=== PATIENT | male | born 1960 | race Caucasian/White ===

== ENCOUNTER → 2023-03-30 | Outpatient (CLI) | payer BC | END | disposition home or self-care (01) | LOC: LABWHC1 07:15 | PROVIDERS: ATTEND Internal Medicine Endocrinology, Diabetes & Metabolism | DX: E24.0 Pituitary-dependent Cushing's disease (principal) | CPT/HCPCS: 36415; 82024; 82533 ==

== ENCOUNTER → 2023-05-28 | Outpatient (CLI) | payer BC ==
[2023-05-28 21:20] LABS: HCT 44.1 % (39.6-50.0); HGB 14.1 d/dL (13.0-17.0); MCH 27.8 pg (27.0-32.0); Mean Platelet Volume 11.6 FL (9.5-12.2); NRBC Per 100 WBC 0 X 10*3/uL (0.00-0.01); Platelet Count 213 X 10*3/uL (140-440); RBC 5.07 X 10*6/uL (4.40-5.60); RDW 14.2 % (11.5-14.5); WBC 5.97 X 10*3/uL (4.50-10.00)
== END | disposition home or self-care (01) ==
LOC: LABWHC1 06:59
PROVIDERS: ATTEND Internal Medicine Endocrinology, Diabetes & Metabolism
DX: E29.1 Testicular hypofunction (principal)
CPT/HCPCS: 36415; 84403; 85027

== ENCOUNTER → 2023-09-21 | Outpatient (CLI) | payer BC ==
[2023-09-21 16:11] LABS: HCT 46.9 % (39.6-50.0); HGB 15.2 g/dL (13.0-17.0); MCH 27.1 pg (27.0-32.0); MCHC 32.4 g/dL (32.0-37.0); MCV 83.6 FL (80.0-97.0); Mean Platelet Volume 11.1 FL (9.5-12.2); NRBC Per 100 WBC 0 X 10*3/uL (0.00-0.01); Platelet Count 232 X 10*3/uL (140-440); RBC 5.61 X 10*6/uL (4.40-5.60); RDW 13.8 % (11.5-14.5); WBC 5.01 X 10*3/uL (4.50-10.00)
[2023-09-21 16:50] LABS: Prostate Specific Antigen 1.24 ng/mL (0.000-4.500)
== END | disposition home or self-care (01) ==
LOC: LABWHC1 09:43
PROVIDERS: ATTEND Internal Medicine Endocrinology, Diabetes & Metabolism
DX: E29.1 Testicular hypofunction (principal)
CPT/HCPCS: 36415; 84153; 84403; 85027

== ENCOUNTER → 2024-01-22 | Outpatient (CLI) | payer BC ==
[2024-01-22 11:08] LABS: HCT 43.8 % (39.6-50.0); HGB 13.9 g/dL (13.0-17.0); MCH 27.1 pg (27.0-32.0); MCHC 31.7 g/dL (32.0-37.0); MCV 85.5 FL (80.0-97.0); Mean Platelet Volume 11.5 FL (9.5-12.2); NRBC Per 100 WBC 0 X 10*3/uL (0.00-0.01); Platelet Count 191 X 10*3/uL (140-440); RBC 5.12 X 10*6/uL (4.40-5.60); RDW 13.7 % (11.5-14.5); WBC 4.86 X 10*3/uL (4.50-10.00)
[2024-01-22 11:27] LABS: Prostate Specific Antigen 1.43 ng/mL (0.000-4.500)
== END | disposition home or self-care (01) ==
LOC: LABWHC1 06:52
PROVIDERS: ATTEND Internal Medicine Endocrinology, Diabetes & Metabolism
DX: E29.1 Testicular hypofunction (principal)
CPT/HCPCS: 36415; 84153; 84403; 85027

== ENCOUNTER 2024-11-11 20:54 | Emergency (ER) | payer BC ==
[2024-11-11 21:06] VITALS: TEMP 97.8
--- NOTE | 2024-11-11 22:07 | ED ---
General Adult HPI - General Chief complaint: Extremity Injury, Upper Stated complaint: Left Arm Bruising Time Seen by Provider: 11/11/24 21:09 Source: patient, RN notes reviewed Mode of arrival: ambulatory - History of Present Illness Initial comments: This is a 64-year-old male with no significant medical history presenting to emergency department with pain to his left upper arm. Patient states that on 11/05/2023 he was outside cutting a deer when he pulled his left bicep. He noticed ecchymosis surrounding the area and pain. Patient was evaluated by orthopedic tech, Dr. Mcclellan on 11/16/24 for an x-ray was completed and physician suggested that patient's pain is likely secondary to muscle strain and continue supportive treatment at home with referral to physical therapy in 4 weeks. Patient believes that he may have further aggravated the muscle today while he was at work driving as there is increasing bruising to the area. Patient states that he feels a tightness in his left bicep. He denies chest pain, shortness of breath, heart palpitations, dizziness lightheadedness. Denies recent surgeries, history of DVT/PE, hemoptysis. - Related Data Allergies Allergy/AdvReac Type Severity Reaction Status Date / Time No Known Allergies Allergy Verified 11/11/24 21:06 Review of Systems ROS Statement: Those systems with pertinent positive or pertinent negative responses have been documented in the HPI. ROS Other: All systems not noted in ROS Statement are negative. Past Medical History Past Medical History: No Reported History History of Any Multi-Drug Resistant Organisms: None Reported Past Surgical History: No Surgical Hx Reported Past Psychological History: No Psychological Hx Reported Smoking Status: Never smoker Past Alcohol Use History: None Reported Past Drug Use History: None Reported General Exam General appearance: alert, in no apparent distress Respiratory exam: Present: normal lung sounds bilaterally. Absent: respiratory distress, wheezes, rales, rhonchi, stridor Cardiovascular Exam: Present: regular rate, normal rhythm, normal heart sounds. Absent: systolic murmur, diastolic murmur, rubs, gallop, clicks GI/Abdominal exam: Present: soft, normal bowel sounds. Absent: distended, tenderness, guarding, rebound, rigid Left Upper Arm exam: Present: full ROM, tenderness, ecchymosis. Absent: deformity, crepidus, dislocation Vascular: Present: normal capillary refill. Absent: vascular compromise Back exam: Present: normal inspection Neurological exam: Present: alert, oriented X3, CN II-XII intact Course Vital Signs 11/11/24 11/11/24 20:57 23:14 Temperature 97.8 F Pulse Rate 71 66 Respiratory 18 16 Rate Blood Pressure 198/95 176/89 O2 Sat by Pulse 96 96 Oximetry Medical Decision Making - Medical Decision Making Was pt. sent in by a medical professional or institution (, PA, RETORT FURNACE OPERATOR, urgent care, hospital, or longterm...) When possible be specific @ -No Did you speak to anyone other than the patient for history (EMS, parent, family, police, friend...)? What history was obtained from this source @ -No Did you review nursing and triage notes (agree or disagree)? Why? @ -I reviewed and agree with nursing and triage notes Were old charts reviewed (outside hosp., previous admission, EMS record, old EKG, old radiological studies, urgent care reports/EKG's, longterm records)? Report findings @ -No old charts were reviewed Differential Diagnosis (chest pain, altered mental status, abdominal pain women, abdominal pain men, vaginal bleeding, weakness, fever, dyspnea, syncope, headache, dizziness, GI bleed, back pain, seizure, CVA, palpatations, mental health, musculoskeletal)? @ -Differential Musculoskeletal Muscular strain, contusion, ligament sprain, fracture, arthritis, septic arthritis, bursitis, cellulitis, muscle spasm, nerve compression, DVT, arterial occlusion, herpes zoster, electrolyte abnormality, tumor.... This is not meant to be in all inclusive list EKG interpreted by me (3pts min.). @ -none X-rays interpreted by me (1pt min.). @ -None CT interpreted by me (1pt min.). @ -None done U/S interpreted by me (1pt. min.). @ -Duplex ultrasound is essentially nondiagnostic. What testing was considered but not performed or refused? (CT, X-rays, U/S, labs)? Why? @ -None What meds were considered but not given or refused? Why? @ -None Did you discuss the management of the patient with other professionals (professionals i.e. , PA, RETORT FURNACE OPERATOR, lab, RT, psych nurse, social sciences research scientist, handhole machine operator, teacher, space officer, pillowcase turner)? Give summary @ -No Was smoking cessation discussed for >3mins.? @ -No Was critical care preformed (if so, how long)? @ -No Were there social determinants of health that impacted care today? How? (Homelessness, low income, unemployed, alcoholism, drug addiction, transportation, low edu. Level, literacy, decrease access to med. care, assisted, rehab)? @ -No Was there de-escalation of care discussed even if they declined (Discuss DNR or withdrawal of care, Hospice)? DNR status @ -No What co-morbidities impacted this encounter? (DM, HTN, Smoking, COPD, CAD, Cancer, CVA, ARF, Chemo, Hep., AIDS, mental health diagnosis, sleep apnea, morbid obesity)? @ -None Was patient admitted / discharged? Hospital course, mention meds given and route, prescriptions, significant lab abnormalities, going to OR and other pertinent info. @ -64-year-old male presenting to the emergency department with left upper extremity ecchymosis and pain. Patient noted to have anterior bicep ecchymosis traveling distally past the elbow. Patient has pain to palpation of the ecchymosis in addition to mild pain with flexion of the bicep. Patient is neurovascularly intact to the upper extremity. As patient underwent x-ray imaging this week x-rays deferred however ultrasound was ordered to rule out DVT. He is offered pain medication however he declined. Patient is requesting discharge prior to radiology interpretation of ultrasound. Patient has verbalized risks of abnormal study results however patient has continued to request discharge. Patient is informed that results will be given to him when they are resulted and instructed to follow-up with orthopedic tech for further evaluation with likely MRI to discern soft tissue injury. Case discussed with Dr. Jones Undiagnosed new problem with uncertain prognosis? @ -No Drug Therapy requiring intensive monitoring for toxicity (Heparin, Nitro, Insulin, Cardizem)? @ -No Were any procedures done? @ -No Diagnosis/symptom? @ -ecchymosis of left arm, muscle sprain vs. muscle tear Acute, or Chronic, or Acute on Chronic? @ -acute Uncomplicated (without systemic symptoms) or Complicated (systemic symptoms)? @ -uncomplicated Side effects of treatment? @ -No Exacerbation, Progression, or Severe Exacerbation? @ -No Poses a threat to life or bodily function? How? (Chest pain, [place], MA, pneumonia, PE, COPD, DKA, ARF, appy, cholecystitis, CVA, Diverticulitis, Homicidal, Suicidal, threat to staff... and all critical care pts) @ -No Disposition Clinical Impression: Ecchymosis, Muscle strain Disposition: HOME SELF-CARE Condition: Good Instructions (If sedation given, give patient instructions): Ecchymosis (ED) Additional Instructions: Please return to the Emergency Department if symptoms worsen or any other concerns. Is patient prescribed a controlled substance at d/c from ED?: No Referrals: Yonathan Lee MD [Primary Care Provider] - 1-2 days Time of Disposition: 23:09
[2024-11-11 23:20] VITALS: BP 176/89; PULSE 66; RESP 16
--- NOTE | 2024-11-11 23:50 | US ---
EXAMINATION TYPE: US venous doppler duplex UE LT DATE OF EXAM: 11/11/2024 COMPARISON: NONE CLINICAL INDICATION: Male, 64 years old with history of hematoma, bruising, r/o blood clot; Patient " overworked" arm by lifting heavy object 2 days ago, had intense pain to bicep and there is extensive upper arm bruising, patient unable to straighten arm, has to keep it bent, no h/o DVT and not on thin ners, 300lbs TECHNIQUE: Grayscale, color Doppler and spectral Doppler imaging of the upper extremity. SIDE PERFORMED: Left FINDINGS: Left Arm: Very limited study shows flow within subclavian vein and IJV, superficial system appears pa tient along with radial and ulnar veins. Due to distortion of normal anatomy at site of bicep, unable to even penetrate axillary and brachial vessels. Patient in pain with the lightest touch. Muscle doss s not appear wnl but unsure of level of probable tear. Grayscale, color doppler, spectral doppler imaging performed of the deep veins of the upper extremiti es. IMPRESSION: Essentially nondiagnostic examination [facility], , 11/11/2024 11:48 PM
== END 2024-11-11 23:14 | disposition home or self-care (01) ==
LOC: EC 20:54
DX: S46.912A Strain of unspecified muscle, fascia and tendon at shoulder and upper arm level, left arm, initial encounter (principal); R58 Hemorrhage, not elsewhere classified; X58.XXXA Exposure to other specified factors, initial encounter
CPT/HCPCS: 99283